=== PATIENT | female | born 1990 | race Caucasian/White ===

== ENCOUNTER → 2019-04-23 | Outpatient (CLI) | payer MEDICAID, OTHER ==
--- NOTE | 2019-04-23 13:25 | RAD ---
RIGHT BREAST SONOGRAPHY Clinical indications: Right breast lump noticed 4 days ago. The patient is 35 weeks . FINDINGS: High-resolution sonography of the palpable lump as indicated by the patient at 10:00 position of the right breast 5 cm from the nipple was performed. There is a subcutaneous solid nodule measuring 15 mm x 7 mm x 17 mm in size. Nodules hypoechoic with thin echogenic capsule rounded. Smooth mild lobulations of the lesion are seen. No internal color Doppler flow is seen. This most likely represents a fibroadenoma. 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 Recommend a 6 month follow-up sonogram of the right breast. Certainly, if the patient notices that this lump grows in size after delivering her baby, then a biopsy could be performed at that time. Note-I discussed the findings and recommendation with the patient after completion of the study on 04/23/2019. BI-RADS Category 3 probable benign finding. The patient information was entered into the data reminder system with a target due date for the sonogram of October 23, 2019.
== END | disposition home or self-care (01) ==
LOC: US 15:00
PROVIDERS: ATTEND Obstetrics & Gynecology
DX: O92.29 Other disorders of breast associated with pregnancy and the puerperium (principal); Z3A.35 35 weeks gestation of pregnancy
CPT/HCPCS: 76641

== ENCOUNTER → 2019-07-04 | Outpatient (CLI) | payer MEDICAID, OTHER ==
--- NOTE | 2019-07-04 13:53 | RAD ---
Limited right breast ultrasound. INDICATION: 28-year-old woman presenting for short-term follow-up probably benign solid palpable nodule in the upper outer right breast. She noticed this late in but reports having noticed multiple additional previous lumpiness in both breasts which resolved. A six-month follow-up right breast ultrasound was recommended but the patient arrives 3 months earlier with no new complaints. COMPARISON: Right breast ultrasound of 04/23/2019. TECHNIQUE: Grayscale and color Doppler imaging of the upper-outer right breast in the area of palpable concern was performed. FINDINGS: An oval parallel orientation circumscribed hypoechoic mass with thin internal septation at the 10:00 position 5 cm from the nipple is identified measuring 1.5 x 1.5 x 0.6 cm, compared with 1.7 x 1.5 x 0.7 cm reported previously. In the interval, anechoic spaces within it have developed, compatible with cystic degenerative change. IMPRESSION: Probably benign 1.5 cm solid nodule in the right breast compatible with a fibroadenoma. Recommend six-month follow-up right breast ultrasound. Age-appropriate routine mammographic screening starting at age 40 in average risk women and containing annually thereafter is also recommended. Discussed with patient. BI-RADS Category 3 Probably benign Recommend targeted right breast ultrasound in 6 months.
== END ==
LOC: US 12:58
PROVIDERS: ATTEND Obstetrics & Gynecology
DX: N63.10 Unspecified lump in the right breast, unspecified quadrant (principal)
CPT/HCPCS: 76641